=== PATIENT | female | born 1975 | race Caucasian/White ===

== ENCOUNTER 2024-09-13 09:15 | Emergency (ER) | payer SELFPAY ==
[2024-09-13 09:24] VITALS: BP 118/72; PULSE 88; RESP 18; TEMP 36.7; O2SAT 96
--- NOTE | 2024-09-13 10:06 | CT_ITS ---
WS: [id number] CT ABDOMEN AND PELVIS WITH CONTRAST HISTORY: possible srini rectal abscess TECHNIQUE: Imaging performed of the abdomen and pelvis with IV contrast. Single phase imaging of the abdomen. Coronal and sagittal reformats are submitted. All CT scans at [facility] use at least one of these dose optimization techniques: automated exposure control; mA and/or kV adjustment per patient size (includes targeted exams where dose is matched to clinical indication); or iterative reconstruction. IV CONTRAST: Omnipaque 350; 100 mL IV. Oral contrast: No DLP: 374.26 mGy.cm COMPARISON: 01/16/2014 Lower thorax: Linear scar at the LEFT base. Heart is normal size. Small hiatal hernia. Bilateral breast implants. Liver/biliary system: Normal size with no intrahepatic dilatation. Gallbladder: Normal. No gallstones or wall thickening. No pericholecystic fluid. Pancreas: Normal size pancreas and pancreatic duct. No adjacent inflammation. Spleen: Normal size spleen. No mass or infarct. Adrenal glands: Normal. Right kidney: Normal. Left kidney: Normal. Aorta: Normal. Lymphadenopathy: None. Free fluid: None. GI tract: No obstruction. Prior appendectomy. No colitis. Abdominal wall: Fat containing umbilical hernia. Pelvis: Uterus is midline. Small amount of fluid in the endometrial canal. There are tiny cystic areas in the subendometrial zone which can be related to adenomyomatosis or prior ablation. Nabothian cysts. Cystic mass with peripheral enhancement in the perineum measures 2.8 x 3.4 x 2.8 cm. Closely associated with the anus. Small amount of adjacent surrounding soft tissue inflammation. Bones: Unremarkable. CT/CT abdomen pelvis w con* [id number] IMPRESSION: 1. Perineal/perianal fluid collection most consistent with an abscess measurin g 2.8 x 3.4 x 2.8 cm. 2. Prior appendectomy. 3. No adenopathy or ascites.
[2024-09-13 10:24] LABS: Basophils % 0.4 %; Eosinophils # 0.2 10^3/uL (0.0-0.8); Eosinophils % 1.6 %; Hematocrit 37.5 % (36-47); Lymphocytes # 1.1 10^3/uL (0.8-4.8); Lymphocytes % 12.2 %; Mean Corpuscular HGB Conc 33.1 g/dL (30-55); Mean Corpuscular Volume 93.8 fl (85-98); Mean Platelet Volume 11.1 fL (7.4-10.4); Monocytes # 0.8 10^3/uL (0.2-0.9); Monocytes % 8.5 %; Neutrophils # 7.04 10^3/uL (1.8-7.7); Neutrophils % 76.5 %; Nucleated Red Blood Cells % 0 %; Platelet Count 263 10^3/cmm (157-399); Red Cell Distribution Width 13.3 % (12.1-15.1)
--- NOTE | 2024-09-13 10:24 | ED_ITS ---
HPI - Female Genitourinary 2 General: Chief complaint: Urogenital-Female Stated complaint: vaginal pain, swelling Time Seen by Provider: 09/13/24 09:17 Source: patient Mode of arrival: ambulatory Limitations: no limitations History of Present Illness: 49-year-old female states she has been h aving vaginal pain over the last 10 days. She states she had noticed some swelling in her perineum with increasing pain over the last 2 days she denies any drainage denies any fever. She states she has not been sexually active for years. Associated symptoms: Deny abdominal pain, headache(s) or nausea Related Data Previous Rx's ?Medication ?Instructions ?Recorded clindamycin HCl 300 mg capsule 300 mg PO Q8H 7 days #2 1 caps 09/13/24 (Cleocin HCl) Allergies Allergy/AdvReac Type Severity Reaction Status Date / Time Sulfa (Sulfonamide Allergy Unknown Verified 09/13/24 09:28 Antibiotics) Review of Systems 2 Const: Denies: fever(s), chills, body aches or change in appetite ENMT: Denies: throat pain or dental pain Card: Denies: chest pain Resp: Denies: dyspnea GI: Denies: abdominal pain, nausea, vomiting or diarrhea Musc: Denies: neck pain or back pain Skin/Breast: Denies: rash Neuro: Denies: headache(s) Physical Exam 2 Const: COMMON NORMALS: no acute distress, patient oriented x3 and healthy appearing HENMT: COMMON NORMALS: normocephalic and atraumatic HEAD & SCALP: n ormocephalic and atraumatic Eye: COMMON NORMALS: conjunctivae normal CONJUNCTIVA: Yes conjunctivae normal Neck/C-Spine: COMMON NORMALS: full ROM and supple Chest: COMMONS NORMALS: normal inspection of the chest Resp: COMMON NORMALS: normal respiratory effort Cardio: COMMON NORMALS: regular rate RATE: regular rate GI: COMMON NORMALS: Normal to inspection, nondistended, normoactive bowel sounds present, Soft to palpation, non-tender and no masses PALPATION: Yes Soft to palpation : OTHER: erythema noted to perineum Extremity: COMMON NORMALS: normal to inspection and full ROM Neuro: COMMON NORMALS: patient oriented x3, moves all extremities and no focal motor deficits Psych: COMMON NORMALS: mental status grossly normal, Normal thought process present and cooperative THOUGHT PROCESS: Normal thought process present Skin: COMMON NORMALS: no rashes or lesions noted and no wounds GENERAL SKIN EXAM: no rashes or lesions noted Procedures Abscess I/D Site: other (perineum) Local Anesthetic: lidocaine 1% Amount of anesthesia used (mL): 8 Technique: incised with #11 blade Packing used?: iodoform Course 2 Vital Signs: Vital signs: Vital Signs Temperature 98.1 F 09/13/24 09:24 Pulse Rate 88 09/13/24 09:24 Respiratory Rate 18 09/13/24 09:24 Blood Pressure 118/72 09/13/24 09:24 Pulse Oximetry 96 09/13/24 09:24 Oxygen Delivery Me thod Room Air 09/13/24 09:24 MDM - Female Medical Decision Making Patient presents here with an abscess did incise and drain the abscess did place her on clindamycin patient to follow-up PCP return if worsening. Lab Data 09/13/24 10:20 09/13/24 10:20 Radiology Impressions Abdomen/Pelvis CT 09/13/24 10:06 IMPRESSION: 1. Perineal/perianal fluid collection most consistent with an abscess measuring 2.8 x 3.4 x 2.8 cm. 2. Prior appendectomy. 3. No adenopathy or ascites. Laboratory Results WBC 9.20 10^3/uL (3.29-11.43) 09/13/24 10:20 RBC 4.00 10^6/uL (3.85-5.65) 09/13/24 10:20 Hgb 12.40 g/dL (11.27-16.99) 09/13/24 10:20 Hct 37.5 % (36-47) 09/13/24 10:20 MCV 93.8 fl (85-98) 09/13/24 10:20 MCH 31.0 pg (27-33) 09/13/24 10:20 MCHC 33.1 g/dL (30-55) 09/13/24 10:20 RDW 13.3 % (12.1-15.1) 09/13/24 10:20 Plt Count 263 10^3/cmm (157-399) 09/13/24 10:20 MPV 11.1 fL (7.4-10.4) H 09/13/24 10:20 Neut % (Auto) 76.5 % 09/13/24 10:20 Lymph % (Auto) 12.2 % 09/13/24 10:20 Blanco % (Auto) 8.5 % 09/13/24 10:20 Eos % (Auto) 1.6 % 09/13/24 10:20 Baso % (Auto) 0.4 % 09/13/24 10:20 Neut # (Auto) 7.04 10^3/uL (1.8-7.7) 09/13/24 10:20 Lymph # (Auto) 1.1 10^3/uL (0.8-4.8) 09/13/24 10:20 Blanco # (Auto) 0.8 10^3/uL (0.2-0.9) 09/13/24 10:20 Eos # (Auto) 0.2 10^3/uL (0.0-0.8) 09/13/24 10:20 Baso # (Auto) 0.0 10^3/uL (0.0-0.1) 09/13/24 10:20 Nucleated RBC % (auto) 0 % 09/13/24 10:20 Nucleated RBCs # 0.0 /100WBC 09/13/24 10:20 Sodium 138 mmol/L (136-145) 09/13/24 10:20 Potassium 3.5 mmol/L (3.5-5.1) 09/13/24 10:20 Chloride 100 mmol/L (98-107) 09/13/24 10:20 Carbon Dioxide 26 mmol/L (22-29) 09/13/24 10:20 Anion Gap 15.5 (5-19) 09/13/24 10:20 BUN 5 mg/dL (6-20) L 09/13/24 10:20 Creatinine 0.8 mg/dL (0.5-0.9) 09/13/24 10:20 GFR Calculation 76.6 mL/min (90-130) L 09/13/24 10:20 Glucose 82 mg/dL (65-115) 09/13/24 10:20 Calculated Osmolality 282 mOsm/kg (285-295) L 09/13/24 10:20 Calcium 8.5 mg/dL (8.5-10.5) 09/13/24 10:20 Total Bilirubin 0.2 mg/dL (0.15-1.2) 09/13/24 10:20 AST 11 U/L (0-32) 09/13/24 10:20 ALT 8 U/L (0-33) 09/13/24 10:20 Alkaline Phosphatase 96 U/L (35-105) 09/13/24 10:20 Total Protein 7.3 g/dL (6.6-8.7) 09/13/24 10:20 Albumin 3.8 g/dL (3.5-5.2) 09/13/24 10:20 Globulin 3.5 g/dL (1.3-4.6) 09/13/24 10:20 All radiology interpretation(s) finalized by discharge Discharge Plan Discharge Patient Disposition: Home Clinical Impression: Abscess of perineum Condition: Stable Prescriptions: New clindamycin HCl [Cleocin HCl] 300 mg capsule 300 mg PO Q8H 7 Days Qty: 21 0RF Discharge Orders: Discharge ED (Routine); Ordered 09/13/24 Ordered By: Jolly Smallwood Referrals: Cricket Dias MD [Primary Care Provider, [facility]] Discharge Diet: Advance as tolerated Discharge Activity: Resume usual activity Patient Instructions: Abscess (ED) Print Language: Bengali Coding Level of Care Code ED Waste Treatment Operator for Keshawn Barnes
[2024-09-13 10:43] LABS: Alanine Aminotransferase 8 U/L (0-33); Albumin Level 3.8 g/dL (3.5-5.2); Alkaline Phosphatase 96 U/L (35-105); Anion Gap 15.5 (5-19); Aspartate Amino Transferase 11 U/L (0-32); Blood Urea Nitrogen 5 mg/dL (6-20); Calcium 8.5 mg/dL (8.5-10.5); Carbon Dioxide 26 mmol/L (22-29); Chloride 100 mmol/L (98-107); Globulin 3.5 g/dL (1.3-4.6); Glomerular Filtration Rate 76.6 mL/min (90-130); Glucose 82 mg/dL (65-115); Osmolality Calculated 282 mOsm/kg (285-295); Potassium 3.5 mmol/L (3.5-5.1); Sodium 138 mmol/L (136-145); Total Bilirubin 0.2 mg/dL (0.15-1.2); Total Protein 7.3 g/dL (6.6-8.7)
[2024-09-13] MEDS: iohexol 350 mg/mL 500 mL Btl (per mL) IV (11:09)
[2024-09-13] MEDS: HYDROcodone-acetaminophen 5-325 mg Tablet 1 TAB PO (12:22)
== END 2024-09-13 12:23 | disposition home or self-care (01) ==
PROVIDERS: Emergency Provider Emergency Medicine; PCP Family Medicine
DX: L02.215 Cutaneous abscess of perineum (principal)
CPT/HCPCS: 36415; 56405; 74177; 80053; 85025; 87210; 99285; J9999